=== PATIENT | male | born 1990 | race Caucasian/White ===

== ENCOUNTER 2018-06-30 14:25 | Emergency (ER) | payer BC, SELFPAY ==
[2018-06-30 14:27] VITALS: BP 148/93; PULSE 92; RESP 16; TEMP 36.9; O2SAT 97; BMI 24.3
[2018-06-30] MEDS: Ketorolac 30 MG/ML Syringe IV (15:19)
[2018-06-30] MEDS: DiphenhydrAMINE 50 MG/ML Syringe 25 MG IV (15:19)
[2018-06-30] MEDS: Metoclopramide 10 MG/2 ML Vial IV (15:19)
--- NOTE | 2018-06-30 15:31 | ED.VISSUMM ---
- ER Visit Summary Date of Service: 06/30/18 Chief Complaint: Unilateral with unilateral blurred vision History of Present Illness: The patient is a 28 M who has history of migraine headaches since childhood. He has had numerous studies with no abnormality found. He is on no prophylactic treatment. He denies fever, chills or night sweats. He complained of blurred vision right eye. States the headache initially started on the right. He denied ear pain, decreased hearing or ringing in his ears. He denies rhinorrhea, congestion or postnasal drainage. He denies sore throat. He does complain of neck stiffness. He denies neck pain. He did complain of light sensitivity. He denied vomiting or diarrhea. He denied cardiac or respiratory symptoms. He has no history of trauma. He has no skin lesions. He denies paresthesia, anesthesia or motor weakness. He denies trouble with speech or swallowing. He denies problems with walking or balance. Please read written note for complete detail Physical Examination: Vital signs noted and blood pressure is elevated 148/93. Head is atraumatic normocephalic. Pupils are equal round reactive. Extraocular muscles are intact. Neck is supple with no meningeal findings. TMs are pearly white with landmarks noted. Nares patent with no drainage. Posterior pharynx without erythema or exudate. Uvula is midline. There is no dysphonia or dysphasia. Trachea is midline. There is no stridor with auscultation of the neck. Funduscopic exam reveals normal cup-to-disc ratio. There is no papilledema. Heart is regular without murmur, gallop or rub. S1 and S2 are normal. Lungs are clear to auscultation with good movement of air bilaterally. Abdomen is soft nontender. Patient is alert and oriented ?3. Motor is 5 over 5. Sensory is intact. DTRs are symmetric with no clonus or Babinski sign. Cranial 2 through 12 are intact. Cerebellar testing is normal. Affect is normal. Test Results: No tests were performed Emergency Department Course and Treatment: IV was established. He was treated with 25 mg of Benadryl and 30 minutes of Toradol followed by 10 mg of Reglan. He will be reassessed in 30-60 minutes. Treatment Plan: Follow-up with PCP for prophylactic medication Disposition: Discharged home in stable improved condition Impression: Ocular migraine This note was generated with Dragon dictation software. It may contain incorrect words, spelling, and punctuation that were not noted in review of the chart prior to signing ED Disposition - Plan for ED Patient: Disposition: Home or Assisted Living Chief Complaint: Headache Instructions: ED Headache Migraine Referrals: Care Physician,No Primary [Primary Care Provider] - Additional Instructions: Follow-up with your primary care physician and discuss prophylactic medication
[2018-06-30 16:36] VITALS: BP 127/80; PULSE 102; RESP 20; O2SAT 97
== END 2018-06-30 16:43 | disposition home or self-care (01) ==
PROVIDERS: Emergency Provider Emergency Medicine
DX: G43.109 Migraine with aura, not intractable, without status migrainosus (principal); E66.9 Obesity, unspecified
CPT/HCPCS: 96374; 96375; 99285; J7030; A4216

== ENCOUNTER 2021-12-10 17:26 | Emergency (ER) | payer OTHER, SELFPAY ==
[2021-12-10 17:27] VITALS: BP 144/91; PULSE 96; RESP 18; TEMP 36.5; O2SAT 100; BMI 55.3
--- NOTE | 2021-12-10 18:15 | ED.VIS.GI ---
HPI HPI - GI History of Present Illness Chief Complaint: Abd Pain Informant: patient Abdominal Pain/Flank Pain Onset: Days Context: Gradual Onset Current Severity: Mild Maximum Severity: Mild Nausea/Vomiting/Emesis GI Symptom: Positive for Nausea; Negative for Vomiting Severity: Mild Diarrhea/Melena/Hematochezia GI Symptom: Positive for Diarrhea; Negative for Melena and Hematochezia Onset: Days Stool Quality: Positive for Loose Severity: Mild Associated Symptoms Associated Symptoms: Negative for Dysuria, Frequency, Hematuria and Urgency Narrative Narrative: 31-year-old male history of migraine headaches. Says his left-sided abdominal pain for last several days. Associated nausea no vomiting. Said he is in indigestion for 1 to 2 weeks. He tells that intermittent diarrhea no melena. No fever. No weight change. No prior abdominal surgeries. Denies any abdominal trauma. Prior similar symptoms: No Recent Illness/Hospitalization: No PFSH PFSH Medical History no medical history no medical history Home Medications NK 06/30/18 [History Last Taken Unknown] Allergy/AdvReac Type Severity Reaction Status Date / Time No Known Allergies Allergy Verified 12/10/21 17:27 Surgical History no surgical history no surgical history Social History Smoking Status: Never smoker ROS ROS ED ROS Narrative Side abdominal pain. Diarrhea. Review of Systems ROS Unobtainable: Denies due to encephalopathy Constitutional Constitutional ED: Denies fever(s) ENT ENT ED: Denies ear pain Cardiovascular Cardiovascular: Denies chest pain Respiratory/Chest Respiratory/Chest: Denies dyspnea Gastrointestinal Gastrointestinal: Reports abdominal pain, diarrhea and nausea; Denies constipation, melena or vomiting Genitourinary Genitourinary ED: Denies dysuria Musculoskeletal Musculoskeletal: Denies myalgias Integumentary Denies rash Neurologic Neurologic: Denies headache(s) Psychiatric Psychiatric: Denies depression Endocrine Endocrinology: Denies polyuria Hematologic/Lymphatic Hematologic/Lymphatic: Denies easy bruising Allergic/Immunologic Allergic/Immunologic ED: Denies urticaria EXAM Physical Exam Narrative Exam Narrative: Sounds [id number] male no acute distress vital signs stable afebrile. H EENT exam unremarkable. Moist extremities. Neck nontender no lymphadenopathy. Lungs clear to auscultation bilaterally. Heart regular rhythm no murmur. Abdomen soft nontender. Peritoneal signs. No organomegaly or masses. No distention. No hernia. Moving all 4 extremities. Neurologically awake alert no focal motor deficits. Const Vital Signs: 12/10/21 17:27 12/10/21 19:27 12/10/21 21:11 Temperature 97.7 F L Temperature Source Temporal Pulse Rate 96 87 80 Respiratory Rate 18 15 22 H Blood Pressure 144/91 H 130/92 H 116/80 Blood Pressure Mean 108 104 92 Pulse Ox 100 99 97 Oxygen Delivery Method Room Air Room Air Positive well nourished and well developed; Negative for obese, cachectic, contractures or unkempt General Appearance ED: well developed and NAD; Negative for unkempt, cachectic, contractures or pallor Nutritional Appearance: Negative for cachectic or obese HEENT Reports moist mucous membranes normocephalic and atraumatic; Negative for trauma or tenderness Eyes PERRL and EOMs intact bilaterally General Eye ED: Negative for pale conjunctiva or scleral icterus Neck no lymphadenopathy, supple and no JVD General: Negative for tenderness Resp normal respiratory effort and clear to auscultation bilaterally Auscultation: Negative for rales, rhonchi or wheezes GI non-tender, non-distended and no masses Inspection: Negative for abdominal distention Auscultation: normoactive bowel sounds Palpation: soft; Negative for tender, guarding, rigid or rebound tenderness present Back/Spine no CVA tenderness General Back: Negative for CVA tenderness Cervical Spine: Negative for cervical spine tenderness Thoracic Spine / Upper Back: Negative for thoracic spinal tenderness Extremity full ROM General Extremety ED: Negative for edema or tenderness General Extremity: Negative for edema Neuro moves all extremities Sensorium / Orientation: alert, oriented to person, oriented to place and oriented to time; Negative for confused, lethargic or stuporous Motor Exam: strength 5/5 throughout Psych mental status grossly normal and thought process normal Appearance: Negative for unkempt Skin no wounds General Skin Exam: Negative for jaundice or pallor Lesions: no lesions Rashes: no rashes MDM MDM MDM Narrative Medical decision making narrative: 31-year-old abdominal pain and diarrhea. Exam benign. Abdomen is completely nontender. Soft with normal bowel sounds. Labs are being obtained. Repeat exam patient doing well at 10:10 PM. Abdomen is benign. We went over his test results. He will be discharged home with outpatient follow-up. Lab Data Attestation: I reviewed the patient's lab results. Lab results narrative: CBC normal white count of 5. H&H 16 and 47. Platelets 311. Electrolytes unremarkable gap at 9 normal BUN and creatinine. Liver enzymes are normal. Lipase is normal. Glucose is 98. Urinalysis negative. No nitrites nor red nor white cells and only rare bacteria. Labs: Laboratory Results - last 24 hr 12/10/21 12/10/21 12/10/21 18:10 18:10 18:25 WBC 5.4 RBC 5.66 Hgb 16.4 Hct 47.6 MCV 84.1 MCH 29.0 MCHC 34.5 RDW Std Deviation 37.6 RDW Coeff of [place] 12.5 Plt Count 311 MPV 10.3 Immature Gran % (Auto) 0.400 Neut % (Auto) 59.7 Lymph % (Auto) 32.2 [place] % (Auto) 5.9 Eos % (Auto) 1.1 Baso % (Auto) 0.7 Absolute Neuts (auto) 3.2 Absolute Lymphs (auto) 1.74 Nucleated RBC % 0 Sodium 140 Potassium 3.6 Chloride 106 Carbon Dioxide 25.0 Anion Gap 9 BUN 12 Creatinine 1.01 Estim Creat Clear Calc 102.52 Est GFR (MDRD) Af Amer 110 Est GFR (MDRD) Non-Af 91 BUN/Creatinine Ratio 11.9 Glucose 98 Calcium 9.7 Total Bilirubin 0.70 AST 28 ALT 30 Alkaline Phosphatase 46 Total Protein 8.0 Albumin 4.3 Globulin 3.7 Albumin/Globulin Ratio 1.2 Lipase 100 Urine Color Yellow Urine Clarity Sl. Cloudy Urine pH 7.0 Ur Specific [place] 1.015 Urine Protein Negative Urine Glucose (UA) Normal Urine Ketones 15 H Urine Occult Blood Negative Urine Nitrite Negative Urine Bilirubin Negative Urine Urobilinogen Normal Ur Leukocyte Esterase Negative Urine RBC 0 SEEN Urine WBC 0-5 SEEN Ur Squamous Epith Cells 0-5 SEEN Urine Bacteria RARE Urine Mucus 0 SEEN Discharge Plan Triage Chief Complaint: Abd Pain Other Complaint: Dizziness ED Provider: Sree Martinez Dx/Rx/DC Orders Clinical Impression: Abdominal pain Instructions: Abdominal Pain Prescriptions: No Action NK RF: 0 Primary Care Provider: Jose Perrin [employer] Referrals: Jose Perrin [employer], [employer]-C [Primary Care Provider] - 3-5 Days if not improving Activity Restrictions/Additional Instructions: All your test today were normal. This should progressively improve. For the indigestion you get [id number] Protonix or Prilosec or omeprazole. Follow-up with your primary care provider if not improving. Disposition Disposition: Home, Self Care
[2021-12-10 18:44] LABS: Mucous, Urine 0 SEEN /hpf (<or=2+); Red Blood Cells-Urine 0 SEEN /hpf (0-5)
[2021-12-10 18:47] LABS: Absolute Lymphocyte Count 1.74 X10^3/uL (0.83-4.51); Absolute Neutrophil Count 3.2 X10^3/uL (2.0-7.7); Basophil# 0.04 X10^3/uL; Basophil% 0.7 % (0-1); Eosinophil# 0.06 X10^3/uL; Eosinophils% 1.1 % (0-5); Hematocrit 47.6 % (40-54); Hemoglobin 16.4 g/dL (13.0-16.5); Lymphocyte # 1.74 X10^3/ul (0.83-4.51); Lymphocyte % 32.2 % (19-41); Mean Corp Hgb Conc 34.5 g/dL (32-36); Mean Corpuscular Volume 84.1 fL (80-94); Mean Platelet Vol. 10.3 fl (6.2-12.0); Monocyte# 0.32 X10^3/uL; Monocyte% 5.9 % (0-10); NRBC Flagged by Analyzer 0 % (0-5); Neutrophil # 3.22 X10^3/uL (2.7-7.7); Neutrophil % 59.7 % (47-70); Platelet Count 311 K/mm3 (150-450); RBC Distribution Width CV 12.5 % (11.6-14.6); RBC Distribution Width SD 37.6 fl (35.1-43.9); Red Blood Count 5.66 M/mm3 (4.6-6.2); White Blood Count 5.4 K/mm3 (4.4-11.0)
[2021-12-10 18:54] LABS: Color, Urine Yellow (Yellow); Glucose, Dipstick Normal (Normal); Ketone-Dipstick 15 mg/dl (Negative); Leukocyte Esterase-Dipstick Negative /ul (Negative); Nitrite-Dipstick Negative (Negative); Occult Blood-Urine Negative /ul (Negative); Protein-Dipstick Negative (Negative); Specific Gravity, Urine 1.015 (1.002-1.030); Urine Bilirubin Dipstick Negative (Negative); Urine Clarity Sl. Cloudy (Clear); Urine Urobilinogen Normal (Normal)
[2021-12-10 19:05] LABS: Bacteria RARE /hpf (None Seen); White Blood Cells 0-5 SEEN /hpf (0-5)
[2021-12-10 19:06] LABS: Squamous Epithelial Cells - UA 0-5 SEEN /hpf (0-5)
[2021-12-10 19:17] LABS: ALB/GLOB Ratio 1.2 RATIO (0.9-2.4); AST(SGOT) 28 U/L (15-37); Alanine Aminotransfer ALT/SGPT 30 U/L (16-61); Albumin, Serum 4.3 g/dL (3.2-5.0); Alkaline Phosphatase 46 U/L (45-117); Anion Gap 9 (5-15); BUN 12 mg/dL (7-18); BUN/Creat Ratio 11.9 RATIO (10-20); Calcium,Total 9.7 mg/dL (8.5-10.1); Chloride 106 mmol/L (98-107); Creatinine, Serum 1.01 mg/dL (0.70-1.30); EST Glomerular Filtration Rate 91 mL/min (>60); Est Glom Filt Rate - Afr Amer 110 mL/min (>60); Estimated Creatinine Clearance 102.52 ml/min; Globulin 3.7 g/dL (2.2-4.2); Glucose 98 mg/dL (74-106); Lipase 100 U/L (73-393); Potassium 3.6 mmol/L (3.5-5.1); Sodium Level 140 mmol/L (136-145)
[2021-12-10 19:27] VITALS: BP 130/92; PULSE 87; RESP 15; O2SAT 99
[2021-12-10 21:11] VITALS: BP 116/80; PULSE 80; RESP 22; O2SAT 97
[2021-12-10 22:29] VITALS: BP 134/87; PULSE 76; RESP 20; O2SAT 98
== END 2021-12-10 22:31 | disposition home or self-care (01) ==
PROVIDERS: Emergency Provider Emergency Medicine; PCP Nurse Practitioner Family; Visit Provider Emergency Medicine
DX: R10.9 Unspecified abdominal pain (principal); R11.0 Nausea; R42 Dizziness and giddiness; R19.7 Diarrhea, unspecified; G43.909 Migraine, unspecified, not intractable, without status migrainosus
CPT/HCPCS: 80053; 81001; 83690; 85025; 99283